=== PATIENT | male | born 1985 | race African-American/Black ===

== ENCOUNTER 2021-11-08 18:09 | Emergency (ER) | payer SELFPAY ==
[~2021-11-08] VITALS: Ht 177.8 cm; Wt 98.6 kg
[2021-11-08 18:15] VITALS: BP 156/100
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
== END 2021-11-08 18:35 | disposition left against medical advice (07) ==
LOC: EEVIPCON 18:09 → ER 18:09
DX: S31.823A Puncture wound without foreign body of left buttock, initial encounter (principal); S31.813A Puncture wound without foreign body of right buttock, initial encounter; W33.01XA Accidental discharge of shotgun, initial encounter; Y93.01 Activity, walking, marching and hiking; Y92.89 Other specified places as the place of occurrence of the external cause; Y99.8 Other external cause status
CPT/HCPCS: 99281